=== PATIENT | female | born 1980 | race Caucasian/White ===

== ENCOUNTER 2021-06-25 08:15 | Emergency (ER) | payer OTHER | END 2021-06-25 09:15 | disposition home or self-care (01) | LOC: CSHERS 08:15 | DX: M77.8 Other enthesopathies, not elsewhere classified (principal); I10 Essential (primary) hypertension; F17.210 Nicotine dependence, cigarettes, uncomplicated ==

== ENCOUNTER 2024-04-28 11:36 | Emergency (ER) | payer OTHER, SELFPAY ==
[2024-04-28] MEDS ORDERED: Docusate Sodium 100 MG/10 ML UDCUP FS SCH (13:15)
== END 2024-04-28 15:04 | disposition home or self-care (01) ==
LOC: CSHERS 11:36
DX: H61.23 Impacted cerumen, bilateral (principal); H60.92 Unspecified otitis externa, left ear; I10 Essential (primary) hypertension; F17.210 Nicotine dependence, cigarettes, uncomplicated
CPT/HCPCS: 69210; 99282